=== PATIENT | male | born 1940 | race Caucasian/White ===

== ENCOUNTER 2020-01-28 00:50 | Emergency (ER) | payer MEDICARE, OTHER ==
[~2020-01-28] VITALS: Ht 167.6 cm; Wt 81.6 kg
[~2020-01-28 00:50] MED LIST: AMLODIPINE5 MG PO; COREG12.5 MG PO; HCTZ/TRIAMTEREN1 TAB PO; LIPITOR20 MG PO; METFORMIN500 MG PO
== END 2020-01-28 01:45 | disposition home or self-care (01) ==
LOC: ED 00:50
DX: S63.642A Sprain of metacarpophalangeal joint of left thumb, initial encounter (principal); Z88.0 Allergy status to penicillin; Z79.899 Other long term (current) drug therapy; X58.XXXA Exposure to other specified factors, initial encounter; Y93.89 Activity, other specified; Y92.89 Other specified places as the place of occurrence of the external cause; Y99.8 Other external cause status

== ENCOUNTER 2020-11-24 18:43 | Emergency (ER) | payer MEDICARE, OTHER ==
[~2020-11-24] VITALS: Ht 165.1 cm; Wt 85.3 kg
[2020-11-24] MEDS ORDERED: GLIPIZIDE5 MG PO (18:56)
[2020-11-24] MEDS ORDERED: TRULICITY0.75 MG/0. SC (18:57)
== END 2020-11-24 23:48 | disposition home or self-care (01) ==
LOC: ED 18:43
DX: S86.912A Strain of unspecified muscle(s) and tendon(s) at lower leg level, left leg, initial encounter (principal); S86.911A Strain of unspecified muscle(s) and tendon(s) at lower leg level, right leg, initial encounter; Z79.899 Other long term (current) drug therapy; Z88.0 Allergy status to penicillin; X58.XXXA Exposure to other specified factors, initial encounter; Y93.89 Activity, other specified; Y92.89 Other specified places as the place of occurrence of the external cause; Y99.8 Other external cause status

== ENCOUNTER 2021-07-24 16:23 | Emergency (ER) | payer MEDICARE, OTHER ==
[~2021-07-24] VITALS: Ht 167.6 cm; Wt 79.4 kg
[~2021-07-24 16:23] MED LIST changes: +GLIPIZIDE5 MG PO; +TRULICITY0.75 MG/0. SC
== END 2021-07-24 20:26 | disposition home or self-care (01) ==
LOC: ED 16:23
DX: S01.511A Laceration without foreign body of lip, initial encounter (principal); W18.39XA Other fall on same level, initial encounter; Y93.89 Activity, other specified; Y92.89 Other specified places as the place of occurrence of the external cause; Y99.8 Other external cause status

== ENCOUNTER 2022-04-24 08:28 | Emergency (ER) | payer MEDICARE, OTHER ==
[~2022-04-24] VITALS: Ht 167.6 cm; Wt 74.4 kg
[2022-04-24 09:04] LABS: BASO % 0.2 % (0.0-1.0); EOS # 0.1 10*3/uL (0.0-0.4); EOS % 0.9 % (1.0-4.0); HEMATOCRIT 24.1 % (42.0-52.0); LYMPH # 0.8 10*3/uL (1.3-4.4); MEAN CORPUSCULAR HGB 27.5 pg (27.0-31.0); MEAN CORPUSCULAR HGB CONC 29.9 g/dl (33.0-37.0); MEAN PLATELET VOLUME 8.7 fl (9.6-12.3); MONO # 0.8 10*3/uL (0.1-1.0); MONO % 9.4 % (3.0-9.0); PLATELET COUNT AUTOMATED 255 10*3/uL (130-400); RED BLOOD COUNT 2.62 10*6/uL (4.50-5.90); RED CELL DISTRI WIDTH 16.3 % (0-14.5); WHITE BLOOD COUNT 8.7 10*3/uL (4.8-10.8)
[2022-04-24 09:14] LABS: ACT PARTIAL THROMBO TIME 29.1 SECONDS (20.0-32.1); INTERNATIONAL NORM RATIO 1.2 (2.0-3.5)
[2022-04-24 09:25] LABS: CREATININE 2.76 mg/dL (0.70-1.30); POTASSIUM 4.3 mmol/L (3.5-5.1); TOTAL PROTEIN 6.8 gm/dL (6.4-8.2)
[2022-04-24] MEDS ORDERED: AMLODIPINE BESY10 MG PO (11:21)
[2022-04-24] MEDS ORDERED: CARVEDILOL6.25 MG PO (11:22)
[2022-04-24] MEDS ORDERED: LEVOFLOXACIN750 M2 PO (11:26)
[2022-04-24] MEDS ORDERED: MIRALAX119 GM PO (11:27)
[2022-04-24] MEDS ORDERED: VISTARIL25 MG PO (11:28)
[2022-04-24] MEDS ORDERED: TYLENOL325 M2 PO (11:28)
[2022-04-24 16:51] LABS: BILIRUBIN Negative (Negative); BLOOD Negative (Negative); CLARITY Clear (Clear); COLOR Yellow (Yellow); GLUCOSE Negative (Negative); KETONE Negative (Negative); LEUKO ESTERASE Trace (Negative); NITRITE Negative (Negative); SPECIFIC GRAVITY 1.015 (1.001-1.030); UROBILINOGEN 0.2 E.U./dl (0.0-1.0)
[2022-04-24 17:03] LABS: BACTERIA 1+; EPITHELIAL CELLS 16-20; RBC 0-2 rbc/hpf (0-2)
== END 2022-04-25 07:35 | disposition short-term general hospital (02) ==
LOC: ED 08:28
PROVIDERS: Emergency Medicine
DX: I11.0 Hypertensive heart disease with heart failure (principal); I50.9 Heart failure, unspecified; E11.9 Type 2 diabetes mellitus without complications; E78.00 Pure hypercholesterolemia, unspecified; Z88.0 Allergy status to penicillin; Z79.899 Other long term (current) drug therapy